=== PATIENT | female | born 1960 | race Caucasian/White ===

== ENCOUNTER 2017-01-09 01:57 | Emergency (ER) | payer BC ==
--- NOTE | ~2017-01-09 | CR7 ---
[facility] A Service of [facility] RADIOLOGY TEXT RESULTS PATIENT: ESTUARDO BACH LOCATION: SED : 60 UNIT #: [id number] AGE: [address]: Gregorio Noyola MD SEX: F ORDER DR: [id number] [place] [id number] E MR#: [id number] Acc #: [id number] NAME: ESTUARDO BACH : 1960 SEX: F STUDY DATE/TIME: 01/09/2017 3:44 UNIT: SED ROOM: STUDY DESCRIPTION: CR Abdomen Single AP View Attending Physician: Gregorio Noyola M.D. Ordering Physician: Gregorio Noyola M.D. Primary Care Physician: Nilam Rosario M.D. MEDICAL IMAGING REPORT This report is preliminary unless electronic signature is present. EXAM Supine AP views of the abdomen. COMPARISON CT abdomen and pelvis on the same date. INDICATIONS 56-year-old female with left-sided abdominal pain and flank pain since this morning. FINDINGS Bilateral pelvic phleboliths are noted. Large calcified granuloma seen in the left lower lobe. There is likely persistent calculus in the proximal left ureter, seen at the lateral aspect of L3-L4 but better appreciated on CT. There are no abnormally dilated bowel loops. There is mild degenerative changes of both hips. Degenerative disc disease and marginal osteophyte formation noted at L4-L5. Multilevel marginal osteophyte formation of the thoracolumbar vertebral bodies. IMPRESSION 1. No evidence of bowel obstruction. There is likely persistent calculus in the proximal left ureter, better appreciated on CT performed earlier today. 2. Pelvic phleboliths. 1. Dictated by... Orlin Escalante M.D. THIS IS AN ELECTRONICALLY VERIFIED REPORT Orlin Escalante M.D. at 01/12/2017 10:17 PM Jm [facility] A Service of [facility] RADIOLOGY TEXT RESULTS PATIENT: ESTUARDO BACH LOCATION: SED : 60 UNIT #: [id number] AGE: [address]: Gregorio Noyola MD SEX: F ORDER DR: TD: 01/09/2017 10:00 JOB #: [id number] MEDICAL IMAGING REPORT
--- NOTE | ~2017-01-09 | CT4 ---
[facility] A Service of [facility] RADIOLOGY TEXT RESULTS PATIENT: ESTUARDO BACH LOCATION: SED : 60 UNIT #: [id number] AGE: [address]: Gregorio Noyola MD SEX: F ORDER DR: [id number] [place] [id number] E MR#: [id number] Acc #: [id number] NAME: ESTUARDO BCAH : 1960 SEX: F STUDY DATE/TIME: 01/09/2017 2:40 UNIT: SED ROOM: STUDY DESCRIPTION: CT Abd and Pelv Wo Cont Attending Physician: Gregorio Noyola M.D. Ordering Physician: Gregorio Noyola M.D. Primary Care Physician: Nilam Rosario M.D. MEDICAL IMAGING REPORT This report is preliminary unless electronic signature is present. EXAM CT abdomen and pelvis without IV contrast. COMPARISON CT chest without contrast dated August 02, 2016. INDICATIONS 56-year-old female with left lower quadrant abdominal pain and lower back pain as well as left flank pain tonight. This CT exam was performed with one or more of the following radiation dose reduction techniques: automatic exposure control, adjustment of mA and/or kV according to patient size, and iterative reconstruction. FINDINGS Axial CT imaging of the abdomen and pelvis was performed without IV contrast. Lack of IV contrast limits evaluation of adenopathy, vasculature and viscera. Small fat-containing umbilical hernia. Mild symmetric bilateral body wall edema. Multilevel mild degenerative facet disease of the lumbar spine. Mild osteoarthritis of both hips. Degenerative disc height loss at L4-L5. Posterior disc protrusion with annular calcifications are noted at L3-4, L4-L5. Similar disc protrusion with annular calcification seen posteriorly at T12-L1. Calcified granuloma in the left lower lobe. No acute findings in the imaged lower chest. Unenhanced liver, gallbladder, pancreas and spleen unremarkable. There are splenules in the left upper quadrant of the abdomen. Adrenal glands are unremarkable. There are right-sided nonobstructive renal calculi. There is hypoattenuating lesion in the mid pole left kidney most consistent with a benign cyst. There is mild left hydronephrosis and proximal hydroureter due to an obstructing calculus in the proximal most left ureter measuring up to 4 mm. No right-sided ureteral calculi. There are left-sided pelvic phleboliths. Uterus and ovaries are both unremarkable. Urinary bladder is within normal limits. No evidence of STS. [facility] A Service of [facility] RADIOLOGY TEXT RESULTS PATIENT: ESTUARDO BACH LOCATION: SED : 60 UNIT #: [id number] AGE: [address]: Gregorio Noyola MD SEX: F ORDER DR: bowel obstruction. There are a few diverticula of the splenic flexure of the colon without evidence of acute diverticulitis. The appendix is normal. Normal caliber of the abdominal aorta. No free fluid or pneumoperitoneum. No adenopathy in the abdomen or pelvis. IMPRESSION 1. Mild left hydronephrosis and proximal left hydroureter due to an obstructing proximal 4 mm left ureteral calculus. 2. Benign cyst in the left kidney. 3. Multilevel degenerative changes of the thoracolumbar spine including multilevel posterior disc protrusions as described in the body of the report. 4. Nonobstructive right renal calculi. No evidence of right-sided obstructive uropathy. 5. Colonic diverticula without evidence of acute diverticulitis. 1. Dictated by... Orlin Escalante M.D. THIS IS AN ELECTRONICALLY VERIFIED REPORT Orlin Escalante M.D. at 01/12/2017 10:50 PM Jm TD: 01/09/2017 07:50 JOB #: [id number] MEDICAL IMAGING REPORT
[~2017-01-09 01:57] MED LIST: ALBUTEROL20 ml INH; KEFLEX500 M1 PO; PROVENTIL0.83 MG/ML IH; VITAL-D RX TABL1 TAB
[2017-01-09 02:14] LABS: URINE SOURCE CLEAN CATCH
[2017-01-09 02:16] LABS: URINE APPEARANCE HAZY; URINE BILIRUBIN NEG (NEG); URINE BLOOD 3+ (NEG); URINE COLOR YELLOW; URINE GLUCOSE NEG (NORM); URINE KETONE NEG (NEG); URINE LEUKOCYTE ESTERASE 1+ (NEG); URINE NITRATE POS (NEG); URINE PROTEIN 1+ (NEG)
[2017-01-09 02:17] LABS: MICRO INDICATED? YES
[2017-01-09 02:21] LABS: CULTURE INDICATED? YES; URINE BACTERIA 1+ (NEG); URINE RBC 50-100 /[HPF] (0-2); URINE SQUAMOUS EPITHELIAL CELL OCCAS /[HPF]; URINE TRANSITIONAL EPI CELLS FEW /[HPF]
[2017-01-09 02:30] LABS: BASOPHIL# 0.4 X10e3 (0.0-0.3); BASOPHIL% 3.4 % (0.0-2.5); EOSINOPHIL# 0.1 X10e3 (0.0-0.7); EOSINOPHIL% 0.6 % (0.0-7.0); HEMATOCRIT 46.3 % (35.0-45.0); HEMOGLOBIN 15.4 gm/dl (12.0-16.0); LYMPHOCYTE# 2.1 X10e3 (1.0-3.5); LYMPHOCYTE% 18.3 % (17.0-45.0); MEAN CORPUSCULAR HEMOGLOBIN 28.6 PG (28-34); MEAN CORPUSCULAR HGB CONC 33.3 g/dL (30-36); MEAN PLATELET VOLUME 8.5 FL (6.5-11.5); MONOCYTE# 0.5 X10e3 (0.0-1.0); NEUTROPHIL# 8.6 X10e3 (1.5-7.1); NEUTROPHIL% 73.7 % (40.0-75.0); PLATELET COUNT 183 X10e3 (140-420); RED BLOOD COUNT 5.38 X10e6 (3.90-5.30); RED CELL DISTRIBUTION WIDTH 13.6 % (11.0-15.5); WHITE BLOOD COUNT 11.7 X10e3 (4.0-10.5)
[2017-01-09 02:31] LABS: DIFF IND NO
[2017-01-09 02:44] LABS: BLOOD UREA NITROGEN 23 mg/dL (9-23); BUN/CREATININE RATIO 28.75; CALCIUM SERUM 9.7 mg/dL (8.4-10.2); CARBON DIOXIDE 27 mmol/L (22-31); CHLORIDE 102 mmol/L (100-111); CREATININE SERUM 0.8 mg/dL (0.6-1.4); GLOM FILT RATE Estimated ABOVE60 mL/min (>60); GLUCOSE FASTING 165 mg/dL (70-110); POTASSIUM 3.9 mmol/L (3.5-5.1); SODIUM 138 mmol/L (135-145)
[2017-01-09] MEDS ORDERED: PHENERGAN25 M1 PO (03:34)
[2017-01-09] MEDS ORDERED: OMNICEF300 M1 PO (03:34)
[2017-01-09] MEDS ORDERED: FLOMAX0.4 M1 PO (03:35)
[2017-01-09] MEDS ORDERED: PERCOCET 5/321 UDTAB PO (03:35)
== END 2017-01-09 04:06 | disposition home or self-care (01) ==
LOC: SED 01:57
PROVIDERS: Emergency Medicine
DX: N13.2 Hydronephrosis with renal and ureteral calculous obstruction (principal); F17.200 Nicotine dependence, unspecified, uncomplicated; Z98.51 Tubal ligation status; Z88.2 Allergy status to sulfonamides
CPT/HCPCS: 74000; 74176; 80048; 81003; 85025; 87086; 96361; 96365; 96375; 99284; J0696; J1885; J2405

== ENCOUNTER → 2017-01-17 | Outpatient (CLI) | payer BC ==
[~2017-01-17] MED LIST changes: +FLOMAX0.4 M1 PO; +OMNICEF300 M1 PO; +PERCOCET 5/321 UDTAB PO; +PHENERGAN25 M1 PO
--- NOTE | ~2017-01-17 | EKG ---
PATIENT: ESTUARDO BACH UNIT #: [id number] Ventricular Rate: 78 BPM Atrial Rate: 78 BPM P-R Interval: 138 ms QRS Duration: 84 ms Q-T Interval: 400 ms QTC Calculation(Bezet): 456 ms P [place]: 56 degrees Calculated R [place]: 73 degrees Calculated T [place]: 81 degrees Diagnosis Line: Normal sinus rhythm with sinus arrhythmia Diagnosis Line: Normal ECG Diagnosis Line: Diagnosis Line: Confirmed by YUNIER ALY MD ([id number]) on 01/20/2017 Diagnosis Line: 5:35:36 PM INTERPRETING MD: SHEEBA LANIER
--- NOTE | ~2017-01-17 | CR63 ---
[facility] A Service of [facility] RADIOLOGY TEXT RESULTS PATIENT: ESTUARDO BACH LOCATION: [place] : 60 UNIT #: [id number] AGE: [address]: Maximiliano Power MD SEX: F ORDER DR: [id number] [address] [id number] [id number] O MR#: [id number] Acc #: [id number] NAME: ESTUARDO BACH : 1960 SEX: F STUDY DATE/TIME: 01/17/2017 17:47 UNIT: [facility] ROOM: STUDY DESCRIPTION: CR Chest 2 View Attending Physician: Maximiliano Power M.D. Ordering Physician: Maximiliano Power M.D. Primary Care Physician: Nilam Rosario M.D. MEDICAL IMAGING REPORT This report is preliminary unless electronic signature is present. EXAM PA and lateral chest INDICATION Preop renal stone surgery COMPARISON 02/19/2008 FINDINGS A PA and lateral view of the chest were obtained. The heart size and vascularity are normal and the lungs are clear. There are degenerative changes in the thoracic spine. IMPRESSION No active disease. Dictated by... Mike Robles M.D. THIS IS AN ELECTRONICALLY VERIFIED REPORT Mike Robles M.D. at 01/18/2017 4:54 PM Lamine TD: 01/18/2017 11:30 JOB #: [id number] MEDICAL IMAGING REPORT
[2017-01-17 17:55] LABS: HEMATOCRIT 44.4 % (35.0-45.0); HEMOGLOBIN 14.6 gm/dL (12.0-16.0); MEAN CELL VOLUME 88.2 FL (83-96); MEAN CORPUSCULAR HEMOGLOBIN 28.9 PG (28-34); MEAN CORPUSCULAR HGB CONC 32.8 g/dL (30-36); MEAN PLATELET VOLUME 8.4 FL (6.5-11.5); RED BLOOD COUNT 5.03 X10e (3.90-5.30); RED CELL DISTRIBUTION WIDTH 14.2 % (11.0-15.5); WHITE BLOOD COUNT 11.6 X10e3 (4.0-10.5)
[2017-01-17 18:13] LABS: BLOOD UREA NITROGEN 15 mg/dL (9-23); CARBON DIOXIDE 29 mmol/L (22-31); CHLORIDE 101 mmol/L (100-111); CREATININE SERUM 0.6 mg/dL (0.6-1.4); GLOM FILT RATE Estimated ABOVE60 mL/min (>60); GLUCOSE FASTING 90 mg/dL (70-110); POTASSIUM 3.8 mmol/L (3.5-5.1); SODIUM 138 mmol/L (135-145)
== END | disposition home or self-care (01) ==
LOC: SLAB 17:33
PROVIDERS: Urology
DX: Z01.818 Encounter for other preprocedural examination (principal); N20.0 Calculus of kidney
CPT/HCPCS: 36415; 71020; 80048; 85027; 93005